=== PATIENT | female | born 1970 | race Caucasian/White ===

== ENCOUNTER → 2024-04-26 07:28 | Outpatient (REF) | payer BC, OTHER, SELFPAY | LOC: PAVMRI 07:28 | PROVIDERS: ATTENDING PHYSICIAN Obstetrics & Gynecology; FAMILY PHYSICIAN Nurse Practitioner Family | DX: R93.89 Abnormal findings on diagnostic imaging of other specified body structures (principal) | CPT/HCPCS: 72197; A9575 ==